=== PATIENT | female | born 1990 | race Caucasian/White ===

== ENCOUNTER 2018-12-15 09:37 | Emergency (ER) | payer BC, OTHER ==
[2018-12-15 10:01] VITALS: BP 140/80
--- NOTE | 2018-12-15 10:14 | UC ---
General HPI - HPI Summary HPI Summary: slipped on ice injuring R ankle and foot 2 days ago. c/o ongoing pain and swelling that radiates into calf mm. - History of Current Complaint Chief Complaint: UCLowerExtremity Stated Complaint: RT ANKLE INJ Time Seen by Provider: 12/15/18 10:01 Hx Obtained From: Patient Hx Last Menstrual Period: 12/09/18 Onset/Duration: Sudden Onset Timing: Constant Pain Intensity: 7 Associated Signs & Symptoms: Negative: Weakness - Allergy/Home Medications Allergies/Adverse Reactions: Allergies Allergy/AdvReac Type Severity Reaction Status Date / Time No Known Allergies Allergy Verified 12/15/18 09:53 Home Medications: Home Medications Ibuprofen TAB* [Advil TAB*] 400 mg PO Q6H PRN 12/15/18 [History Confirmed ] NK [No Home Medications Reported] 12/15/18 [History Confirmed 12/15/18] PMH/Surg Hx/FS Hx/Imm Hx Previously Healthy: Yes - Surgical History Surgical History: Yes Surgery Procedure, Year, and Place: FACIAL CYST EXCISION - Social History Occupation: Employed Full-time Alcohol Use: None Substance Use Type: None Smoking Status (MU): Never Smoked Tobacco Review of Systems All Other Systems Reviewed And Are Negative: Yes Constitutional: Positive: Negative Skin: Positive: Negative Eyes: Positive: Negative ENT: Positive: Negative Respiratory: Positive: Negative Cardiovascular: Positive: Negative Gastrointestinal: Positive: Negative Genitourinary: Positive: Negative Motor: Positive: Negative Neurovascular: Negative: Decreased Sensation Neurological: Negative: Weakness, Paresthesia, Numbness Psychological: Positive: Negative Physical Exam Triage Information Reviewed: Yes Appearance: Well-Appearing Vital Signs: Initial Vital Signs Temp 98.4 F 12/15/18 09:55 Pulse 76 12/15/18 09:55 Resp 16 12/15/18 09:55 BP 140/80 12/15/18 09:55 Pulse Ox 100 12/15/18 09:55 Vital Signs Reviewed: Yes Eyes: Positive: Conjunctiva Clear ENT: Positive: Normal ENT inspection Neck: Positive: Supple Respiratory: Positive: Lungs clear, Normal breath sounds Cardiovascular: Positive: RRR, No Murmur Abdomen Description: Positive: Nontender Musculoskeletal: Positive: Other: - RLE: hip and knee non tender. Calf no swelling or cords but mildly tender. Achilles non tender and intact. Lateral ankle and foot with mild swelling and tenderness. Limited rom due to pain. toes have full s/v/m function. Neurological: Positive: Alert Psychological: Positive: Age Appropriate Behavior Skin Exam: Normal Skin: Negative: Rashes Diagnostics - Radiology No standard instances Radiology Interpretation Completed By: Radiologist - ankle=SOFT TISSUE SWELLING , NO FRACTURE IS SEEN.foot= NO EVIDENCE FOR FRACTURE. IF THE PATIENT'S SYMPTOMS PERSIST, RECOMMEND FOLLOW-UP IMAGING. Course/Dx - Course Course Of Treatment: NO HTN, BP VISIT RELATED - Differential Dx - Multi-Symptom Differential Diagnoses: Other - fx, sprain - Diagnoses Provider Diagnosis: Sprain of right ankle, Sprain of right foot Discharge - Sign-Out/Discharge Documenting (check all that apply): Patient Departure All imaging exams completed and their final reports reviewed: Yes - Discharge Plan Condition: Stable Disposition: HOME Patient Education Materials: Ankle Sprain (ED), Ankle Stirrup Splint (ED), Foot Sprain (ED) Forms: *Work Release Referrals: Francheska Patterson MD [Primary Care Provider] - 5 Days - Billing Disposition and Condition Condition: STABLE Disposition: Home
== END 2018-12-15 10:59 | disposition home or self-care (01) ==
LOC: UCCORT 09:37
DX: S93.601A Unspecified sprain of right foot, initial encounter (principal); S93.401A Sprain of unspecified ligament of right ankle, initial encounter; W18.49XA Other slipping, tripping and stumbling without falling, initial encounter; Y92.9 Unspecified place or not applicable
CPT/HCPCS: 99213; G0463

== ENCOUNTER 2019-08-18 16:06 | Emergency (ER) | payer BC ==
--- OUTSIDE RECORDS SUMMARY | 2019-08-18 16:20 | XMS REPORT | Continuity of Care Document ---
:1990 External Reference #:[id number] Author Name Francheska Patterson MD Address [address] [place] [address] Care Team Providers Name Role Phone Carmen Gee DR - Rheumatology Care Team Information Proofing Machine Operator [phone] Carolin Martel Care Team Information Proofing Machine Operator [phone] Westley Ross MD - Cardiovascular Care Team Information Proofing Machine Operator [phone] [facility] Care Team Information Proofing Machine Operator [phone] Problems Active Problems Provider Date Acute bronchitis Sumanth Alvarez MD Onset: 04/26/2017 Social History Type Date Description Comments Sex Unknown ETOH Use Currently consumes alcohol drinks on the weekends Tobacco Use Start: Unknown Patient has never smoked Smoking Status Reviewed: 08/11/19 Patient has never smoked Allergies, Adverse Reactions, Alerts Description No Known Drug Allergies Medications Active Medications SIG Qnty Indications Ordering Provider Date No Active Medications Unknown 04/09/2019 History Medications Clindamycin HCL 1 po three 30caps N61.1 Francheska Patterson, 03/30/2019 - 300mg times daily x 04/09/2019 Capsules 10 days Medications Administered in Office Medication SIG Qnty Indications Ordering Provider Date PPD Injection Unknown 04/01/2018 Immunizations CPT Code Status Date Vaccine Reaction Lot # [id number] Given 10/14/2018 Flu Vaccine NOS 57209 Given 05/10/2011 Tdap (Adacel) Ages 7 And Above Only 06858 Given 12/08/2007 HPV Vaccine (Gardasil) 3 Dose Schedule 81500 Given 06/08/2007 HPV Vaccine (Gardasil) 3 Dose Schedule 26048 Given 04/07/2007 Menactra/Menveo Meningococcal Vaccine 46680 Given 04/07/2007 HPV Vaccine (Gardasil) 3 Dose Schedule 43415 Given 06/12/2006 Tetanus And Diptheria Toxoids For Adult Use-preservative free 74467 Given 06/12/2006 Tetanus And Diptheria Toxoids For Adult Use-preservative free 28472 Given 07/10/2004 Hepatitis B Vac Adolescent 2 Dose Schedule 87096 Given 03/08/2004 Hepatitis B Vac Adolescent 2 Dose Schedule 89837 Given 04/20/1997 MMR Virus Immunization 50356 Given 05/16/1993 MMR Virus Immunization Q2039 Refused 07/20/2019 Flu Vaccine NOS will get in fall Vital Signs Date Vital Result Comment 08/11/2019 10:34am Weight 206.00 lb Heart Rate 82 /min BP Systolic 124 mmHg BP Diastolic 76 mmHg Respiratory Rate 18 /min Height 64.25 inches 5'4.25" O2 % BldC Oximetry 98 % Ra BMI (Body Mass Index) 35.1 kg/m2 07/20/2019 3:40pm Body Temperature 97.6 F Weight 205.00 lb Heart Rate 99 /min BP Systolic 126 mmHg BP Diastolic 78 mmHg Respiratory Rate 16 /min Height 64.25 inches 5'4.25" O2 % BldC Oximetry 99 % ra BMI (Body Mass Index) 34.9 kg/m2 Results Test Date Facility Test Result H/L Range Note Laboratory test 08/11/2019 [facility] TSH <pending> finding Stool Panel 07/22/2019 [facility] Enteric Pathogens SEE NOTE 1 By PCR Lactoferrin,Fecal POSITIVE (Neg) 2 C Diff Toxin B/PCR-RL 07/22/2019 [facility] Specimen Description STOOL C Diff Toxin B NEGATIVE (Neg) 027 Nap1 B1 NEGATIVE (Neg) Comment NOTE: IF REFLEX <SEE NOTE> 3 1 SPECIMEN DESCRIPTION STOOL SPECIAL REQUESTS NONE RESULT NEGATIVE FOR ENTERIC PATHOGENS BY PCR. NOTE: THIS MOLECULAR ASSAY DETECTS THE FOLLOWING ENTERIC PATHOGENS: CAMPYLOBACTER GROUP (COLI, JEJUNI, MARIANO), SALMONELLA SPECIES, SHIGELLA SPECIES (DYSENTERIAE, BOYDII, SONNEI, FLEXNERI), VIBRIO GROUP (CHOLERAE, PARAHAEMOLYTICUS), YERSINIA ENTEROCOLITICA, SHIGA TOXIN 1, SHIGA TOXIN 2, NOROVIRUS GROUP 1 AND 2, ROTAVIRUS A. REPORT STATUS FINAL 07/23/2019 Unless otherwise specified, testing performed by [facility], [address] [place] [address] [address] PERFORMED AT [address] [place] [address] Unless otherwise specified, testing performed by [facility] [address] [place] [address] 3 NOTE: IF REFLEX CULTURE FOR KLEBSIELLA OXYTOCA IS CLINICALLY INDICATED, PLEASE CONTACT THE [facility] ([phone]) WITHIN 3 DAYS OF THIS REPORT. Unless otherwise specified, testing performed by [facility] [address] [place] [id number] Procedures Date Code Description Status 08/11/2019 19015 Brief Emotional/Behav Assessment W/ Scoring Doc Per Completed [facility] Medical Devices Description No Information Available Encounters Type Date Location Provider Dx Diagnosis Office Visit 07/20/2019 [facility] Jayde Bills, R19.7 Diarrhea, unspecified 3:15p E66.9 Obesity, unspecified Z68.34 Body mass index (BMI) 34.0-34.9, adult Office Visit 04/13/2019 8:45a [facility] Francheska Patterson MD N61.1 Abscess of the breast and nipple Office Visit 03/30/2019 10:00a [facility] Francheska Patterson MD N61.1 Abscess of the breast and nipple Z13.31 Encounter for screening for depression Z68.35 Body mass index (BMI) 35.0-35.9, adult Assessments Date Code Description Provider 08/11/2019 E66.9 Obesity, unspecified Francheska Patterson MD 08/11/2019 Z01.419 Encounter for gynecological examination Francheska Patterson MD (general) (routine) without abnormal findings 08/11/2019 Z13.31 Encounter for screening for depression Francheska Patterson MD 08/11/2019 F32.0 Major depressive disorder, single episode, Francheska Patterson MD mild 08/11/2019 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, Francheska Patterson MD unspecified 08/11/2019 M06.9 Rheumatoid arthritis, unspecified Francheska Patterson MD 08/11/2019 F32.0 Major depressive disorder, single episode, Schedule, Laboratory mild 08/11/2019 Z68.35 Body mass index (BMI) 35.0-35.9, adult Francheska Patterson MD 07/20/2019 R19.7 Diarrhea, unspecified Jayde Bills MD 07/20/2019 E66.9 Obesity, unspecified Jayde Bills MD 07/20/2019 Z68.34 Body mass index (BMI) 34.0-34.9, adult Jayde Bills MD 04/13/2019 N61.1 Abscess of the breast and nipple Francheska Patterson MD 03/30/2019 N61.1 Abscess of the breast and nipple Francheska Patterson MD 03/30/2019 Z13.31 Encounter for screening for depression Francheska Patterson MD 03/30/2019 Z68.35 Body mass index (BMI) 35.0-35.9, adult Francheska Patterson MD Plan of Treatment Future Appointment(s):08/14/2020 10:30 am - Francheska Patterson MD at [facility]08/11/2019 - Francheska Patterson MDE66.9 Obesity, unspecifiedComments:Counseled about strategies for weight loss and the impact of weight on chronic medical problems.Work on healthy lifestyle, with regular exercise (20 min daily will help) and eat a healthy diet. Formal diet plans work best.She was advised to work on weight loss. Recommended to follow a formal diet plan. Educated about calorie counting. Educated about [employer] kirill for calories counting.Z01.419 Encounter for gynecological examination (general) (routine) without abnormal findingsComments:Pap smear was done in 2018 was normal.Follow up:1-year FYE no Pap smear or sooner if any problem arises. Labs today.Z13.31 Encounter for screening for depressionComments:Phq9 = 17; screening for depression is positive for moderately severe fxnihqgwalV88.0 Major depressive disorder, single episode, mildComments:Depression was positive. PHQ2-17. She states that she feels anxious rather than depressed. discussed counseling and/ or medication - she will call if she wants to discuss medication.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, unspecifiedComments:reviewed her echocardiogram - this is no longer significant - repeat echocardiogram as mqtpgbC67.9 Rheumatoid arthritis, unspecifiedComments:in remission - she will call if she would like a referral to see rheumatology dvvxbF08.35 Body mass index (BMI) 35.0-35.9, adultComments:The BMI is the ratio of height to weight. Weight loss is desirable. Your goal BMI is between 18.5 and 25.. Your are overweight. Work on improving your diet to help with weight loss. Functional Status Description No Information Available Mental Status Description No Information Available Referrals Description No Information Available
--- OUTSIDE RECORDS SUMMARY | 2019-08-18 16:20 | XMS REPORT | Continuity of Care Document ---
:1990 External Reference #:[id number] Author Name Jayde Bills MD Address [address] [place] [id number] Care Team Providers Name Role Phone Carmen Gee DR - Rheumatology Care Team Information Enterprise Engineer [phone] Carolin Martel Care Team Information Enterprise Engineer [phone] Westley Ross MD - Cardiovascular Care Team Information Enterprise Engineer [phone] [facility] Care Team Information Enterprise Engineer [phone] Problems Active Problems Provider Date Acute bronchitis Sumanth Alvarez MD Onset: 04/26/2017 Rheumatic disease of tricuspid valve Francheska Patterson MD Onset: 08/05/2018 Social History Type Date Description Comments Sex Unknown ETOH Use Currently consumes alcohol drinks on the weekends Tobacco Use Start: Unknown Patient has never smoked Smoking Status Reviewed: 03/30/19 Patient has never smoked Allergies, Adverse Reactions, [...] # [id number] Given 10/14/2018 Flu Vaccine NOS 55909 Given 05/10/2011 Tdap (Adacel) Ages 7 And Above Only 32908 Given 12/08/2007 HPV Vaccine (Gardasil) 3 Dose Schedule 74209 Given 06/08/2007 HPV Vaccine (Gardasil) 3 Dose Schedule 78608 Given 04/07/2007 Menactra/Menveo Meningococcal Vaccine 82220 Given 04/07/2007 HPV Vaccine (Gardasil) 3 Dose Schedule 91325 Given 06/12/2006 Tetanus And Diptheria Toxoids For Adult Use-preservative free 40626 Given 06/12/2006 Tetanus And Diptheria Toxoids For Adult Use-preservative free 69312 Given 07/10/2004 Hepatitis B Vac Adolescent 2 Dose Schedule 91948 Given 03/08/2004 Hepatitis B Vac Adolescent 2 Dose Schedule 14833 Given 04/20/1997 MMR Virus Immunization 47798 Given 05/16/1993 MMR Virus Immunization Q2039 Refused 07/20/2019 Flu Vaccine NOS will get in fall Vital Signs Date Vital Result Comment 07/20/2019 3:40pm Body Temperature 97.6 F Weight 205.00 lb Heart Rate 99 /min BP Systolic 126 mmHg BP Diastolic 78 mmHg Respiratory Rate 16 /min Height 64.25 inches 5'4.25" O2 % BldC Oximetry 99 % ra BMI (Body Mass Index) 34.9 kg/m2 04/13/2019 8:46am Weight 207.00 lb Heart Rate 100 /min BP Systolic 132 mmHg BP Diastolic 90 mmHg Respiratory Rate 18 /min Height 64.25 inches 5'4.25" BMI (Body Mass Index) 35.3 kg/m2 Results Description No Information Available Procedures Description No Information Available Medical Devices Description No Information Available Encounters Type Date Location Provider Dx Diagnosis Office Visit 04/13/2019 8:45a [facility] Francheska Patterson MD N61.1 Abscess of the breast and nipple Office Visit 03/30/2019 10:00a [facility] Francheska Patterson MD N61.1 Abscess of the breast and nipple Z13.31 Encounter for screening for depression Z68.35 Body mass index (BMI) 35.0-35.9, adult Assessments Date Code Description Provider 07/20/2019 R19.7 Diarrhea, unspecified Jayde Bills MD [...] Francheska Patterson MD Plan of Treatment Future Appointment(s):08/11/2019 10:00 am - Francheska Patterson MD at [facility]07/20/2019 - Jayde Bills, MDR19.7 Diarrhea, unspecifiedNew Labs:Stool Panel, Ordered: 07/20/19Comments:Most likely diarrhea is part of viral infection. could be other causes so will do stool panel c diffcolitis, giardia, etc. Fluids, rest and seek care if becomes dehydration. Recommend liquid diet and lactose free for 24-48 hours until stools start to thicken up, then go to bland soft foods Examples: spaghetti noodles, white rice, mashed potatoes no butter and chicken, turkey, white fish and when feeling better gradually move to bananas, apples, pears (no grapes/nectarines, oranges/peaches) and starchy veg like sweet potatoe , soft cooked carrots, (no stringy veg like ruth, lettuce etc) and hold offon dairy or use lactose free milk, when ready reintroduce with yogurt. Avoid all spicy, fatty, tomato foods, processed meats ie hot dogs sausages, ect until you are back to normal.Signs of dehydrationinclude dark urine, fatigue, dry mouth, dizziness. Seek care if you can't keep up with the fluids.Follow up:do stool panel, fu as yrotleB09.9 Obesity, unspecifiedComments:continue to work on diet, exercise, weight lossZ68.34 Body mass index (BMI) 34.0-34.9, adultComments: continue to work on reduced calorie diet and exercise for weight loss cautioned risks for sleep apnea, arthritis, diabetes, hypertension, premature cardiovascular disease. Functional Status Description No Information Available Mental Status Description No Information Available Referrals Description No Information Available
[2019-08-18 16:24] VITALS: BP 134/88
--- NOTE | 2019-08-18 17:03 | UC ---
- HPI Summary HPI Summary: 28-year-old female presents with complaints of a cyst to her right and left breasts. States she noted a cyst to her right breast yesterday and reports that it did have some a little bit of drainage that has since stopped. Noticed the cyst to her left breast this morning to set has been no drainage from this. Patient reports she has history of multiple facial cysts that have been removed and recently had a cyst in the same location to her right breast that her primary care provider treated with a course of antibiotics. No history of MRSA. Denies fever or chills. - History of Current Complaint Hx Obtained From: Patient - Allergy/Home Medications Allergies/Adverse Reactions: Allergies Allergy/AdvReac Type Severity Reaction Status Date / Time No Known Allergies Allergy Verified 08/18/19 16:19 PMH/Surg Hx/FS Hx/Imm Hx Previously Healthy: Yes - Denies significant PMH - Surgical History Surgical History: Yes Surgery Procedure, Year, and Place: FACIAL CYST EXCISION - Family History Known Family History: Positive: Non-Contributory - Social History Occupation: Employed Full-time Lives: With Family Alcohol Use: Occasionally Substance Use Type: None Smoking Status (MU): Never Smoked Tobacco Review of Systems All Other Systems Reviewed And Are Negative: Yes Constitutional: Negative: Fever, Chills Skin: Positive: Other - See HPI Respiratory: Positive: Negative Cardiovascular: Positive: Negative Gastrointestinal: Positive: Negative Genitourinary: Positive: Negative Musculoskeletal: Positive: Negative Neurological: Positive: Negative Is Patient Immunocompromised?: No Physical Exam - Summary Physical Exam Summary: GENERAL APPEARANCE: Well developed, well nourished, alert and cooperative, and appears to be in no acute distress. CARDIAC: Normal S1 and S2. No S3, S4 or murmurs. Rhythm is regular. There is no peripheral edema, cyanosis or pallor. Extremities are warm and well perfused. Capillary refill is less than 2 seconds. Peripheral pulses intact. LUNGS: Clear to auscultation without rales, rhonchi, wheezing or diminished breath sounds. BREASTS: 3 cm x 4 cm area of erythema and induration without fluctuance or drainage noted to the right lower breast at the 5 o'clock position. 2 cm x 2 cm circular area of erythema, induration, and fluctuance to the left lower breast at the 7 o'clock position. No axillary lymphadenopathy. ABDOMEN: Positive bowel sounds. Soft, nondistended, nontender. No guarding or rebound. No masses or hepatosplenomegally. MUSKULOSKELETAL: ROM intact to all extremities. No joint erythema or tenderness. Normal muscular development. Normal gait. SKIN: Skin normal color, texture and turgor. Triage Information Reviewed: Yes Vital Signs: Initial Vital Signs Temp 98 F 08/18/19 16:19 Pulse 72 08/18/19 16:19 Resp 16 08/18/19 16:19 BP 134/88 08/18/19 16:19 Pulse Ox 100 08/18/19 16:19 Vital Signs Reviewed: Yes Procedures - Procedure Summary Procedure Summary: PROCEDURE NOTE: Incision and drainage of left breast abscess PROCEDURE: Informed consent was obtained and timeout protocol was performed prior to initiating the procedure. The skin was prepped with Betadine. The site was anesthetized with 1% lidocaine without epinephrine. A stab incision was made in the central area of fluctuance and clear drainage was expressed from the wound. The abscess was explored thoroughly and sequestered pockets were opened. A wound culture was obtained and sent. A bulky gauze dressing was then placed by the RN. Bleeding was minimal. The patient tolerated the procedure well without complications. Standard post- procedure care is explained and return precautions were given. Breast Pain Course/Dx - Course Course Of Treatment: 28-year-old female presents with complaints of a cyst to her right and left breasts. States she noted a cyst to her right breast yesterday and reports that it did have some a little bit of drainage that has since stopped. Noticed the cyst to her left breast this morning to set has been no drainage from this. Patient reports she has history of multiple facial cysts that have been removed and recently had a cyst in the same location to her right breast that her primary care provider treated with a course of antibiotics. No history of MRSA. Denies fever or chills. Afebrile. Vital signs stable. Patient had a 3 cm x 4 cm area of erythema and induration without fluctuance or drainage noted to the right lower breast at the 5 o'clock position and a 2 cm x 2 cm circular area of erythema, induration, and fluctuance to the left lower breast at the 7 o 'clock position consistent with an abscess. Remainder of exam was unremarkable. An I&D was performed to the abscess of the left breast. A small amount of clear drainage was expressed from the wound. A wound culture was obtained and sent. We'll place the patient on cephalexin 500 mg 3 times a day 7 days especially since there was nothing to drain in the right breast abscess pending the wound culture results. She is to follow-up with her primary care provider in 3-5 days especially if symptoms are not improving. Anticipatory guidance and warning symptoms were reviewed with the patient. Verbalizes understanding and agrees with plan of care. - Differential Diagnoses Differential Diagnosis/HQI/PQRI: Breast Abscess, Breast Mass, Other: - Breast cyst - Diagnoses Provider Diagnoses: Breast abscess Discharge ED - Sign-Out/Discharge Documenting (check all that apply): Patient Departure All imaging exams completed and their final reports reviewed: No Studies - Discharge Plan Condition: Stable Disposition: HOME Prescriptions: Cephalexin CAP* [Keflex 500 CAP*] 500 mg PO TID 7 Days #21 cap Patient Education Materials: Abscess (ED) Referrals: Francheska Patterson MD [Primary Care Provider] - 3 Days Additional Instructions: Leave the dressing that was applied in the clinic in place for the next 24 hours. Be sure to keep it clean and dry. After 24 hours, you may remove the dressing and shower and shower as normal. Apply some antibiotic ointment and cover the wound with a bandage especially if draining. This should be changed at least twice a day or any time the dressing becomes wet or soiled. Use acetaminophen (Tylenol) or ibuprofen (Advil, Motrin) according to directions as needed for pain. Follow up with your primary care provider in 3-5 days especially if symptoms are not improving. Seek immediate medical attention if you develop fever greater than 100.5 F, have severe pain not managed with pain medication, the redness rapidly spreads, or you have any worsening of symptoms. - Billing Disposition and Condition Condition: STABLE Disposition: Home - Attestation Statements Provider Attestation: Per institutional requirements, I have reviewed the chart, however, I was not consulted specifically or made aware of this patient by the midlevel provider. I did not personally evaluate, interact with , or disposition this patient.
[2019-08-18] MEDS ORDERED: Lidocaine 1% MPF ** 5 ML VIAL INJ ONE (17:05)
--- NOTE | 2019-08-22 10:39 | UC ---
- Progress Note Progress Note: Final wound culture report reviewed: Staph lugdenensis This is sensitive to cefazolin. Patient is on Keflex and should be sensitive. No change in plan. Course/Dx - Diagnoses Provider Diagnoses: Breast abscess Discharge ED - Sign-Out/Discharge Documenting (check all that apply): Post-Discharge Follow Up All imaging exams completed and their final reports reviewed: No Studies - Discharge Plan Condition: Stable Disposition: HOME Prescriptions: Cephalexin CAP* [Keflex 500 CAP*] 500 mg PO TID 7 Days #21 cap Patient Education Materials: Abscess (ED) Referrals: Francheska Patterson MD [Primary Care Provider] - 3 Days Additional Instructions: Leave the dressing that was applied in the clinic in place for the next 24 hours. Be sure to keep it clean and dry. After 24 hours, you may remove the dressing and shower and shower as normal. Apply some antibiotic ointment and cover the wound with a bandage especially if draining. This should be changed at least twice a day or any time the dressing becomes wet or soiled. Use acetaminophen (Tylenol) or ibuprofen (Advil, Motrin) according to directions as needed for pain. Follow up with your primary care provider in 3-5 days especially if symptoms are not improving. Seek immediate medical attention if you develop fever greater than 100.5 F, have severe pain not managed with pain medication, the redness rapidly spreads, or you have any worsening of symptoms. - Billing Disposition and Condition Condition: STABLE Disposition: Home
== END 2019-08-18 17:30 | disposition home or self-care (01) ==
LOC: UCCORT 16:06
DX: N61.1 Abscess of the breast and nipple (principal); B95.7 Other staphylococcus as the cause of diseases classified elsewhere
CPT/HCPCS: 10060; 87070; 87077; 87186; 87205; 99212; G0463